=== PATIENT | male | born 1955 | race Asian ===

== ENCOUNTER 2017-03-02 00:41 | Inpatient (IN) | payer BC ==
[~2017-03-02] VITALS: Ht 180.3 cm; Wt 49.9 kg
[2017-03-02] VITALS (10 sets, daily range): BP systolic 99–141
[2017-03-02 01:47] LABS: BILIRUBIN,URINE 2+ (NEGATIVE); BLOOD, URINE 2+ (NEGATIVE); CLARITY/URINE CLEAR (CLEAR); COLOR,URINE YELLOW (YELLOW); GLUCOSE,URINE 2+ (NEGATIVE); KETONES,URINE NEGATIVE (NEGATIVE); LEUKOCYTE ESTERASE ,URINE NEGATIVE (NEGATIVE); NITRITE, URINE NEGATIVE (NEGATIVE); PROTEIN URINE TRACE (NEGATIVE)
[2017-03-02] MEDS ORDERED: HYDROmorphone 1 MG INJ. 1 MG/ML AMPUL IVP ONE (02:00)
[2017-03-02 02:07] LABS: BASOPHILS % (AUTO) 0.1 % (0.0-2.0); EOSINOPHILS % (AUTO) 0.1 % (0.0-4.0); HEMATOCRIT 32.8 % (36-54); HEMOGLOBIN 10.9 g/dL (14.0-18.0); LYMPHOCYTES # (AUTO) 0.1 K/uL (1.0-5.5); LYMPHOCYTES % (AUTO) 1.8 % (20.5-51.5); MEAN CORPUSCULAR HEMOGLOBIN 34 pg (27-31); MEAN CORPUSCULAR HGB CONC 33 % (32-36); MEAN CORPUSCULAR VOLUME 103 fL (79.0-98.0); MONOCYTES # (AUTO) 0.1 K/uL (0.0-1.0); MONOCYTES % (AUTO) 1.1 % (1.7-9.3); NEUTROPHILS # (AUTO) 6.3 K/uL (1.8-7.7); NEUTROPHILS % (AUTO) 96.9 % (40.0-70.0); PLATELET COUNT (AUTO) 83 K/uL (130-430); RED BLOOD CELL COUNT(AUTO) 3.17 MIL/uL (4.2-6.2); RED CELL DISTRIBUTION WIDTH 19.2 % (9.0-15.0); WHITE BLOOD COUNT (AUTO) 6.5 K/uL (4.8-10.8)
[2017-03-02 02:08] LABS: BACTERIA,URINE MODERATE /HPF (None Seen); WBC,URINE 0-3 /HPF (0-3)
[2017-03-02 02:10] LABS: CALCIUM 8.8 mg/dL (8.4-11.0); CREATININE 0.76 mg/dL (0.55-1.30)
[2017-03-02 02:15] LABS: ALBUMIN 1.7 g/dL (3.4-4.8)
[2017-03-02] MEDS ORDERED: DEXA10VI7 IV (03:56)
[2017-03-02] MEDS ORDERED: DEXA4VIA19 IV ×2 (03:57→03:59)
[2017-03-02] MEDS ORDERED: ONDANSETRON HCL 4 MG/2 ML VIAL IVP PRN (04:15)
[2017-03-02] MEDS ORDERED: *TPN PER PHARMACY XX PRN (04:15)
[2017-03-02] MEDS: D5LR 1,000 ML IV SCH ×4 (05:42→20:42)
[2017-03-02] MEDS: DEXAMETHASONE SOD PHOSPHATE 10 MG/ML VIAL IV SCH (08:15)
[2017-03-02 08:34] LABS: PHOSPHORUS 2.7 mg/dL (2.7-4.5)
[2017-03-02] MEDS: HYDROmorphone 1 MG INJ. 1 MG/ML AMPUL IVP PRN (11:27)
[2017-03-02] MEDS: DEXAMETHASONE SOD PHOSPHATE 4 MG/ML VIAL IV SCH ×2 (12:00→16:25)
[2017-03-02] MEDS ORDERED: DEXAMETHASONE SOD PHOSPHATE 4 MG/ML VIAL IV SCH (14:00)
[2017-03-02] MEDS ORDERED: DEXTROSE 50% JECT 50 ML DISP.SYRIN IVP PRN (17:30)
[2017-03-02] MEDS: INSULIN REGULAR, HUMAN 100 UNITS/ML, 10 ML VIAL (novoLIN R) SUBCUT PRN ×2 (17:46→23:48)
[2017-03-02] MEDS: FAT EMULSIONS 250 ML IV SCH (17:47)
[2017-03-02] MEDS ORDERED: TPN CENTRAL 0.0001 ML, SODIUM ACETATE 40 MEQ, POTASSIUM CHLORIDE 20 MEQ, K PHOS 9 MM, M... IV SCH ×9 (18:00)
[2017-03-02] MEDS ORDERED: levETIRAcetam 1,000 MG in NS 100 ML IV ONE (19:45)
[2017-03-02 21:09] LABS: BILIRUBIN,URINE 1+ (NEGATIVE); BLOOD, URINE 1+ (NEGATIVE); CLARITY/URINE CLEAR (CLEAR); COLOR,URINE AMBER (YELLOW); GLUCOSE,URINE 3+ (NEGATIVE); KETONES,URINE NEGATIVE (NEGATIVE); LEUKOCYTE ESTERASE ,URINE NEGATIVE (NEGATIVE); NITRITE, URINE NEGATIVE (NEGATIVE); PROTEIN URINE TRACE (NEGATIVE); UROBILINOGEN,URINE >=8 (0.2-1.0)
[2017-03-02 21:29] LABS: BACTERIA,URINE FEW /HPF (None Seen); MUCUS,URINE 1+ /LPF (None Seen); WBC,URINE 0-3 /HPF (0-3)
[2017-03-03 03:47] VITALS: BP_SYST 116
[2017-03-03] MEDS: INSULIN REGULAR, HUMAN 100 UNITS/ML, 10 ML VIAL (novoLIN R) SUBCUT PRN ×3 (05:53→18:29)
[2017-03-03 07:56] VITALS: BP_SYST 100
[2017-03-03] MEDS: HYDROmorphone 1 MG INJ. 1 MG/ML AMPUL IVP PRN (08:46)
[2017-03-03] MEDS: DEXAMETHASONE SOD PHOSPHATE 10 MG/ML VIAL IV SCH (08:47)
[2017-03-03 08:53] LABS: RED BLOOD CELL COUNT(AUTO) 3.33 MIL/uL (4.2-6.2)
[2017-03-03 09:06] LABS: HEMATOCRIT 34.8 % (36-54); HEMOGLOBIN 11.7 g/dL (14.0-18.0); MEAN CORPUSCULAR HEMOGLOBIN 35 pg (27-31); MEAN CORPUSCULAR HGB CONC 34 % (32-36); MEAN CORPUSCULAR VOLUME 104 fL (79.0-98.0); PLATELET COUNT (AUTO) 70 K/uL (130-430); RED CELL DISTRIBUTION WIDTH 18.9 % (9.0-15.0)
[2017-03-03 09:11] LABS: CALCIUM 8.8 mg/dL (8.4-11.0); CREATININE 0.72 mg/dL (0.55-1.30); POTASSIUM 3.8 mmol/L (3.5-5.1)
[2017-03-03 09:13] LABS: WHITE BLOOD COUNT (AUTO) 5.4 K/uL (4.8-10.8)
[2017-03-03 09:21] LABS: ALBUMIN 1.7 g/dL (3.4-4.8); PHOSPHORUS 2.3 mg/dL (2.7-4.5); TOTAL BILIRUBIN 2.6 mg/dL (0.0-1.0)
[2017-03-03] MEDS: levETIRAcetam 500 MG in NS 100 ML IV SCH ×2 (09:50→21:31)
[2017-03-03 10:29] LABS: BAND % (MANUAL) 6 % (0-6); LYMPHOCYTES % (MANUAL) 5 % (20-46)
[2017-03-03 10:30] LABS: ATYPICAL LYMPHOCYTES % 0 % (0-0); BASOPHILS % (MANUAL) 0 % (0-2); EOSINOPHILS % (MANUAL) 1 % (0-7); MONOCYTES % (MANUAL) 2 % (0-11)
[2017-03-03 11:28] VITALS: BP_SYST 101
[2017-03-03] MEDS: DEXAMETHASONE SOD PHOSPHATE 4 MG/ML VIAL IV SCH ×2 (12:05→16:33)
[2017-03-03] MEDS ORDERED: K PHOS 15 MM in NS 250 ML IV ONE (13:00)
[2017-03-03 15:04] VITALS: BP_SYST 94
[2017-03-03] MEDS ORDERED: TPN CENTRAL 0.0001 ML, SODIUM ACETATE 40 MEQ, POTASSIUM CHLORIDE 20 MEQ, K PHOS 12 MM, ... IV SCH ×18 (18:00)
[2017-03-03] MEDS: FAT EMULSIONS 250 ML IV SCH (18:26)
[2017-03-03 20:42] VITALS: BP_SYST 102
[2017-03-03 23:58] VITALS: BP_SYST 114
[2017-03-04] MEDS: INSULIN REGULAR, HUMAN 100 UNITS/ML, 10 ML VIAL (novoLIN R) SUBCUT PRN ×2 (01:28→06:07)
[2017-03-04] MEDS: HYDROmorphone 1 MG INJ. 1 MG/ML AMPUL IVP PRN ×2 (01:37→16:03)
[2017-03-04] MEDS: D5LR 1,000 ML IV SCH (01:48)
[2017-03-04 04:36] VITALS: BP_SYST 109
[2017-03-04 07:40] LABS: CALCIUM 8.6 mg/dL (8.4-11.0); CREATININE 0.66 mg/dL (0.55-1.30); PHOSPHORUS 3.1 mg/dL (2.7-4.5)
[2017-03-04 07:56] VITALS: BP_SYST 107
[2017-03-04] MEDS: DEXAMETHASONE SOD PHOSPHATE 10 MG/ML VIAL IV SCH (08:47)
[2017-03-04] MEDS: levETIRAcetam 500 MG in NS 100 ML IV SCH (08:47)
[2017-03-04 08:50] LABS: HEMATOCRIT 30.8 % (36-54); HEMOGLOBIN 10.2 g/dL (14.0-18.0); MEAN CORPUSCULAR HEMOGLOBIN 34 pg (27-31); MEAN CORPUSCULAR HGB CONC 33 % (32-36); MEAN CORPUSCULAR VOLUME 104 fL (79.0-98.0); RED BLOOD CELL COUNT(AUTO) 2.97 MIL/uL (4.2-6.2); RED CELL DISTRIBUTION WIDTH 18.7 % (9.0-15.0)
[2017-03-04 09:04] LABS: PLATELET COUNT (AUTO) 48 K/uL (130-430); WHITE BLOOD COUNT (AUTO) 3.2 K/uL (4.8-10.8)
[2017-03-04] MEDS: DEXAMETHASONE SOD PHOSPHATE 4 MG/ML VIAL IV SCH ×2 (11:21→16:03)
[2017-03-04 11:43] VITALS: BP_SYST 95
[2017-03-04 11:57] LABS: ATYPICAL LYMPHOCYTES % 0 % (0-0); BAND % (MANUAL) 30 % (0-6); BASOPHILS % (MANUAL) 0 % (0-2); EOSINOPHILS % (MANUAL) 0 % (0-7); LYMPHOCYTES % (MANUAL) 2 % (20-46); MONOCYTES % (MANUAL) 3 % (0-11)
[2017-03-04 15:38] VITALS: BP_SYST 110
== END 2017-03-04 16:30 | disposition short-term general hospital (02) | DRG 100 ==
LOC: SED 00:41 → STU 04:01
PROVIDERS: ADMIT Internal Medicine; ATTEND Internal Medicine
PROC: 3E0336Z Introduction of Nutritional Substance into Peripheral Vein, Percutaneous Approach (ICD-10-PCS; principal; 2017-03-03)
DX: R56.9 Unspecified convulsions (principal); G93.41 Metabolic encephalopathy; E43 Unspecified severe protein-calorie malnutrition; D69.6 Thrombocytopenia, unspecified; R53.2 Functional quadriplegia; G81.91 Hemiplegia, unspecified affecting right dominant side; E83.39 Other disorders of phosphorus metabolism; E86.0 Dehydration; Z68.1 Body mass index [BMI] 19.9 or less, adult; D63.8 Anemia in other chronic diseases classified elsewhere; Z85.028 Personal history of other malignant neoplasm of stomach; Z85.841 Personal history of malignant neoplasm of brain; Z79.52 Long term (current) use of systemic steroids; Z92.21 Personal history of antineoplastic chemotherapy; Z92.3 Personal history of irradiation; Z85.830 Personal history of malignant neoplasm of bone; Z85.89 Personal history of malignant neoplasm of other organs and systems
CPT/HCPCS: 36415; 80048; 80053; 81000-TC; 82140-TC; 82962; 83036; 83605; 83735-TC; 84100-TC; 84478-TC; 85007; 85025; 85027; 87081; 95816; 96374; 99285; J1100; J1170; J1815; J1953; J3475; J3480; J7050; J7120